=== PATIENT | male | born 1980 | race Caucasian/White ===

== ENCOUNTER 2018-10-21 09:49 | Emergency (ER) | payer MEDICAID, OTHER ==
--- NOTE | 2018-10-21 10:15 | ED Physician Documentation ---
History of Present Illness - Stated complaint Stated Complaint: SORE THROAT/FEVER - Chief complaint Chief Complaint: General - Additonal information Additional information: hx from pt 38 male 4 days of fever congestion sore throat cough and now diarrhea + sick contacts no travel otherwise well taking theraflu Review of Systems Constitutional: reports: Fever Nose: reports: Congestion Throat: reports: Sore throat Respiratory: reports: Cough GI: reports: Diarrhea Neurologic: reports: Headache (congestion) Immunocompromised: denies: Immunocompromised PD PAST MEDICAL HISTORY - Past Medical History Respiratory: Asthma - Past Surgical History Past Surgical History: No - Present Medications Home Medications: Ambulatory Orders Medication Instructions Recorded Confirmed Benzonatate [Tessalon Perle] 100 mg PO TID PRN #20 capsule 10/21/18 D-Methorphan/PE/Acetaminophen 10/21/18 [Theraflu Ms Severe Cold Pckt] Dextromethorphan/Benzocaine 1 each PO Q4H PRN #20 lozenge 10/21/18 [Cepacol Sorethroat-Cough Rao] Fluticasone [Flonase] 1 sprays WILLIAM BID PRN #1 bottle 10/21/18 - Allergies Allergies/Adverse Reactions: Allergies Allergy/AdvReac Type Severity Reaction Status Date / Time No Known Drug Allergies Allergy Verified 10/21/18 09:55 - Social History Does the pt smoke?: Yes Smoking Status: Current every day smoker Does the pt drink ETOH?: Yes Does the pt have substance abuse?: No - Immunizations Immunizations are current?: Yes PD ED PE NORMAL - Vitals Vital signs reviewed: Yes - HEENT HEENT: Ears normal, Moist mucous membranes, Pharynx benign (erythema but no tonsillar swelling or exudate), Other (no sinus swelling) - Neck Neck: No: No adenopathy (anterior no posterior) - Cardiac Cardiac: RRR - Respiratory Respiratory: No respiratory distress, Clear bilaterally - Abdomen Abdomen: Non tender, No organomegaly - Derm Derm: Normal color - Neuro Neuro: Alert and oriented X 3 Results - Vitals Vitals: Vital Signs - 24 hr 10/21/18 10/21/18 09:53 10:26 Temperature 36.2 C L 37.5 C Heart Rate 100 100 Respiratory 16 16 Rate Blood Pressure 134/87 H 135/99 H O2 Saturation 96 96 Oxygen O2 Source Room air - Labs Labs: Laboratory Tests 10/21/18 10:12 Group A Strep Rapid Negative Departure - Departure Disposition: Home, Self Care Clinical Impression: Upper respiratory infection Condition: Good Instructions: ED URI Viral Prescriptions: Benzonatate [Tessalon Perle] 100 mg PO TID PRN #20 capsule PRN Reason: Cough Dextromethorphan/Benzocaine [Cepacol Sorethroat-Cough Rao] 1 each PO Q4H PRN #20 lozenge PRN Reason: sore throat Fluticasone [Flonase] 1 sprays WILLIAM BID PRN #1 bottle PRN Reason: congestion Comments: The strep swab was negative A throat culture will also be run and the ER staff will call you if it is positive and you need antibiotics Your lungs sound clear - I do not think you have pneumonia So this is likely a viral infection I have prescribed medications to ease your symptoms. And a note for work so you can rest and recover Forms: Activity restrictions
[2018-10-21 10:58] VITALS: BP 125/95
== END 2018-10-21 11:40 | disposition home or self-care (01) ==
LOC: ED 09:49
DX: J06.9 Acute upper respiratory infection, unspecified (principal); F17.200 Nicotine dependence, unspecified, uncomplicated
CPT/HCPCS: 87070; 87430; 99283